=== PATIENT | female | born 1960 | race Caucasian/White ===

== ENCOUNTER 2017-01-29 17:03 | Emergency (ER) | payer OTHER ==
[2017-01-29 17:19] VITALS: BP 116/76
[2017-01-29] MEDS ORDERED: KETOROLAC 60 MG/2 ML VIAL IM STA (18:57)
[2017-01-29] MEDS ORDERED: DEXAMETHASONE 10 MG/ML VIAL PO STA (18:57)
[2017-01-29] MEDS ORDERED: HYDROmorphone 1 MG/ML SYRINGE IM STA (18:57)
--- NOTE | 2017-01-29 18:57 | ED Physician Documentation ---
PD HPI BACK PAIN - Stated complaint Stated Complaint: BACK PX - Chief complaint Chief Complaint: Back Pain - History obtained from History obtained from: Patient - History of Present Illness Timing - onset: Chronic Timing - duration: Months Timing - details: Gradual onset, Still present, Waxing and waning Location: Lower Quality: Pain, Spasm Recently seen: Clinic (has had low back pain ongoing with worse recently. Seen in clinic and given Rx for meds that are not working well. No new injury. No leg weakness/ numbness/ incontinence/ fever/ rash.) Review of Systems Constitutional: denies: Fever, Chills : denies: Incontinent Skin: denies: Rash, Lesions Neurologic: denies: Focal weakness, Numbness PD PAST MEDICAL HISTORY - Past Medical History Cardiovascular: Deep vein thrombosis Respiratory: Asthma, Shortness of breath Endocrine/Autoimmune: None GI: GERD, GI bleed, Ulcers, Chronic diarrhea, Ulcerative colitis : None HEENT: Chronic vision loss, Other Psych: Depression, Anxiety, Panic attacks, Post traumatic stress disorder Musculoskeletal: Osteoarthritis, Fibromyalgia Derm: None - Past Surgical History Past Surgical History: Yes General: Cholecystectomy, Colonoscopy Ortho: Spine surgery /LIFE COACH: section, Hysterectomy, Other - Present Medications Home Medications: Ambulatory Orders Medication Instructions Recorded Confirmed Gabapentin [Neurontin] 3 - 4 tab PO DAILY 06/08/14 10/13/16 Citalopram Hydrobromide [Celexa] 40 mg PO DAILY 08/01/14 10/13/16 Alprazolam [Xanax] 0.25 mg PO DAILY PRN 10/07/16 10/13/16 oxyCODONE [Roxicodone] 5 mg PO PRN PRN 10/07/16 10/13/16 traMADol [Ultram] 50 mg PO DAILY PRN 10/07/16 10/13/16 Dexamethasone [Decadron] 4 mg PO DAILY #5 tablet 01/29/17 - Allergies Allergies/Adverse Reactions: Allergies Allergy/AdvReac Type Severity Reaction Status Date / Time erythromycin base Allergy Respiratory Verified 01/29/17 17:19 hydrocodone bitartrate * Allergy Itching Verified 01/29/17 17:19 [From Vicodin] Penicillins Allergy Hives Verified 01/29/17 17:19 bupropion HCl * AdvReac Hives Verified 01/29/17 17:19 [From Wellbutrin] duloxetine HCl * AdvReac Hives Verified 01/29/17 17:19 [From Cymbalta] - Social History Does the pt smoke?: No Smoking Status: Never smoker Does the pt drink ETOH?: No Does the pt have substance abuse?: No - Immunizations Immunizations are current?: Yes - POLST Patient has POLST: No PD ED PE NORMAL - Vitals Vital signs reviewed: Yes - General General: Alert and oriented X 3, Well developed/nourished - Abdomen Abdomen: Soft, Non tender - Back Back: No CVA TTP, No spinal TTP, Other (tender lower back muscles without rash/ redness/ deformity. No vetebral tenderness to percussion. ) - Derm Derm: Normal color, Warm and dry, No rash - Extremities Extremities: No tenderness to palpate, Normal ROM s pain - Neuro Neuro: No motor deficit, No sensory deficit, Other (2+ reflexes at knees. ) Results - Vitals Vitals: Oxygen O2 Source Room air PD MEDICAL DECISION MAKING - ED course Complexity details: considered differential (ongoing back pain without new trauma nor red flags. ), d/w patient Departure - Departure Disposition: 01 Home, Self Care Clinical Impression: Back pain Qualifiers: Back pain location: low back pain Chronicity: acute Back pain laterality: left Sciatica presence: with sciatica Sciatica laterality: sciatica of left side Qualified Code(s): M54.42 - Lumbago with sciatica, left side Condition: Stable Record reviewed to determine appropriate education?: Yes Instructions: ED Sciatica Follow-Up: Gloria Howard PA-C [Primary Care Provider] - Prescriptions: Dexamethasone [Decadron] 4 mg PO DAILY #5 tablet Comments: Continue current medications. Add Decadron steroid daily for 5 days. Recheck with PMD if not improving over the next few days. Discharge Date/Time: 01/29/17 20:03
[2017-01-29] MEDS ORDERED: HYDROmorphone 1 MG/ML SYRINGE ONE (19:03)
[2017-01-29] MEDS ORDERED: DEXAMETHASONE 10 MG/ML VIAL ONE (19:03)
[2017-01-29] MEDS ORDERED: KETOROLAC 60 MG/2 ML VIAL ONE (19:03)
[2017-01-29] MEDS ORDERED: CHERRY SYRUP 10 ML UDC PO ONE (19:03)
== END 2017-01-29 20:03 | disposition home or self-care (01) ==
LOC: ED 17:03
DX: M54.42 Lumbago with sciatica, left side (principal); J45.909 Unspecified asthma, uncomplicated; K21.9 Gastro-esophageal reflux disease without esophagitis; M79.7 Fibromyalgia; M19.90 Unspecified osteoarthritis, unspecified site; Z87.11 Personal history of peptic ulcer disease; Z86.718 Personal history of other venous thrombosis and embolism
CPT/HCPCS: 96372; 99283; A9270; J1170

== ENCOUNTER 2017-02-15 15:38 | Outpatient (CLI) | payer OTHER ==
--- NOTE | 2017-02-16 08:47 | XRAY Report ---
THREE-VIEW RIGHT ANKLE: 02/15/2017 CLINICAL INDICATION: Pain. FINDINGS: AP, lateral, oblique views of the right ankle are compared to previous films of 04/04/2015 . Soft tissue swelling is again noted. There is now a focal lucency in the distal fibula, with surroun ding sclerosis. This may be postoperative in etiology, or may represent a small osteoid osteoma. Th ere is no evidence of acute fracture. No effusion is seen. IMPRESSION: SMALL LUCENCY IN THE DISTAL FIBULA, WITH SURROUNDING SCLEROSIS. THIS MAY BE POSTOPERATI VE IN ETIOLOGY OR REPRESENT A SMALL OSTEOID OSTEOMA. IF THERE IS NO SURGICAL EXPLANATION FOR THIS, R EPEAT MRI WOULD BE RECOMMENDED. JOB #: [id number] EXT JOB #:[id number]
== END 2017-02-15 15:39 | disposition home or self-care (01) ==
LOC: DI 15:38
PROVIDERS: ATTEND Orthopaedic Surgery
DX: M25.571 Pain in right ankle and joints of right foot (principal)

== ENCOUNTER 2017-04-30 16:32 | Outpatient (CLI) | payer OTHER ==
--- NOTE | 2017-04-30 22:08 | MRI Report ---
EXAM: RIGHT ANKLE/HINDFOOT MRI WITHOUT CONTRAST EXAM DATE: 04/30/2017 05:58 PM. CLINICAL HISTORY: Nontraumatic rupture of peroneal tendon, right. COMPARISON: Radiographs 02/15/2017. TECHNIQUE: Multiplanar, multisequence T1-weighted and fluid-sensitive sequences of the ankle/hindfoot without contrast. Other: None. FINDINGS: Bones and articular surfaces: No significant ankle joint effusion. No osteochondral lesions. No signi ficant articular cartilage defects. Tunnel within the distal fibula relating to lateral ankle reconst ruction. No significant associated marrow edema. No fracture identified. Musculotendinous structures: There is thickening of the peroneal tendons where the proximal portion o f the peroneus brevis is sutured to the peroneus longus above the lateral malleolus. The peroneus cece esmer tendon demonstrates a small amount of adjacent fluid. Otherwise intact. The peroneus brevis tendo n is seen intact from the anterior margin of the fibular tunnel to the fifth metatarsal insertion. Sm all volume of fluid associated with the tibialis posterior. Remaining anterior and posterior ankle te ndons appear intact. Achilles tendon and plantar fascia appear intact. Ligaments: The anterior and posterior talofibular and deltoid ligaments appear intact. The calcaneofi bular ligament appears attenuated. Visualized portion appears intact. Abnormal signal within the tars al sinus. Miscellaneous: Small amount of soft tissue thickening and edema adjacent to the peroneus brevis tendo n distal to the fibular tunnel in the area of pain. IMPRESSION: 1. Minimal peroneal tenosynovitis above the lateral malleolus. 2. Small amount of soft tissue thickening and edema adjacent to the peroneus brevis tendon distal to the fibular tunnel may represent some scar tissue. [facility] MUSCULOSKELET[facility]IOLOGY SECTION Referring Provider Line: [phone] SITE ID: [id number]
== END 2017-04-30 16:33 | disposition home or self-care (01) ==
LOC: DI 16:32
PROVIDERS: ATTEND Physician Assistant Medical
DX: M65.871 Other synovitis and tenosynovitis, right ankle and foot (principal)

== ENCOUNTER 2017-12-08 14:38 | Outpatient (CLI) | payer BC ==
[2017-12-08 17:37] LABS: BASOPHILS # (AUTO) 0.1 10^3/uL (0.0-0.1); BASOPHILS % (AUTO) 0.8 %; EOSINOPHILS # (AUTO) 0.3 10^3/uL (0.0-0.7); EOSINOPHILS % (AUTO) 3.8 %; HGB - HEMOGLOBIN 13.5 g/dL (12.0-16.0); LYMPHOCYTES # (AUTO) 2.9 10^3/uL (1.5-3.5); LYMPHOCYTES % (AUTO) 39.6 %; MEAN CORPUSCULAR HEMOGLOBIN 29.5 pg (27.0-31.0); MEAN CORPUSCULAR HGB CONC 33.4 g/dL (32.0-36.0); MEAN CORPUSCULAR VOLUME 88.2 fL (81.0-99.0); MEAN PLATELET VOLUME 8.2 fL (7.9-10.8); MONOCYTES # (AUTO) 0.6 10^3/uL (0.0-1.0); MONOCYTES % (AUTO) 7.8 %; NEUTROPHILS # (AUTO) 3.5 10^3/uL (1.5-6.6); PLT - PLATELET COUNT 340 10^3/uL (130-450); RED BLOOD COUNT 4.57 10^6/uL (4.20-5.40); RED CELL DISTRIBUTION WIDTH 13.5 % (12.0-15.0); WHITE BLOOD COUNT 7.3 x10^3/uL (4.8-10.8)
[2017-12-08 18:00] LABS: ALBUMIN 4.2 g/dL (3.2-5.5); ALBUMIN/GLOBULIN RATIO 1.2 (1.0-2.2); CALCIUM 9.3 mg/dL (8.5-10.3); MAGNESIUM 2.1 mg/dL (1.7-2.8); TOTAL PROTEIN 7.7 g/dL (6.7-8.2)
== END 2017-12-08 14:39 | disposition home or self-care (01) ==
LOC: LAB.F 14:38
PROVIDERS: ATTEND Physician Assistant Medical
DX: R25.2 Cramp and spasm (principal); Z51.81 Encounter for therapeutic drug level monitoring; Z79.899 Other long term (current) drug therapy
CPT/HCPCS: 36415; 80053; 80061; 83721; 83735; 84443; 85025

== ENCOUNTER 2017-12-15 08:08 | Outpatient (CLI) | payer BC ==
[2017-12-15 12:15] LABS: CHOL/HDL RATIO 4.4 (<4.4); CHOLESTEROL 239 mg/dL; HDL CHOLESTEROL 54 mg/dL; LDL CHOLESTEROL,CALCULATED 161 mg/dL; VLDL CHOLESTEROL 24 mg/dL
== END 2017-12-15 08:09 | disposition home or self-care (01) ==
LOC: LAB.F 08:08
PROVIDERS: ATTEND Physician Assistant Medical
DX: R25.2 Cramp and spasm (principal); Z51.81 Encounter for therapeutic drug level monitoring; Z79.899 Other long term (current) drug therapy
CPT/HCPCS: 36415; 80061; 83721

== ENCOUNTER 2018-11-28 13:27 | Outpatient (CLI) | payer OTHER, BC ==
--- NOTE | 2018-11-29 10:35 | MRI Report ---
Reason: CHRONIC PAIN SUBJECTIVE INSTABILITY SINCE SURGICAL Procedure Date: 11/28/2018 Accession Number: [id number] / [id number] Procedure: MRI - Ankle RT W/O CPT Code: FULL RESULT: EXAM: RIGHT ANKLE/HINDFOOT MRI WITHOUT CONTRAST EXAM DATE: 11/28/2018 02:45 PM. CLINICAL HISTORY: Chronic pain subjective instability since surgical. COMPARISON: ANKLE RT W/O 04/30/2017 4:45 PM. TECHNIQUE: Multiplanar, multisequence T1-weighted and fluid-sensitive sequences of the ankle/hindfoot without contrast. Other: None. FINDINGS: Bones: Again seen is lateral ankle repair with peroneus brevis interposition through fibular tunnel. Repair appears intact. Alignment stable. Bony structures demonstrate normal morphology and signal with no marrow edema. Articular Cartilage: Probable mild anterior ankle degenerative joint disease with mild cartilage thinning and small anterior tibial osteophyte, stable. Mild calcaneocuboid cartilage thinning. Ligaments: The anterior and posterior tibiofibular, anterior and posterior talofibular, and calcaneofibular ligaments are intact. The deep and superficial deltoid and spring ligaments are intact. Anterior Tendons: The tibialis anterior, extensor hallucis longus, and extensor digitorum longus tendons are unremarkable. Medial Tendons: The tibialis posterior, flexor digitorum longus, and flexor hallucis longus tendons are unremarkable. Lateral Tendons: Peroneus brevis interposition through the fibular tunnel, stable. Peroneus longus intact. Achilles Tendon: The Achilles tendon is unremarkable. Musculature: No edema or fatty atrophy. Other: No effusions. The contents of the sinus tarsi and tarsal tunnel are unremarkable. No plantar fasciitis. Mild soft tissue edema medial and lateral. IMPRESSION: 1. Stable lateral ankle repair with peroneus brevis interposition through fibular tunnel, stable. 2. Minimal degenerative changes in the ankle and calcaneocuboid joints, stable. 3. Otherwise, no significant change since prior. [facility]
== END 2018-11-28 13:28 | disposition home or self-care (01) ==
LOC: DI 13:27
PROVIDERS: ATTEND Physical Medicine & Rehabilitation
DX: M19.071 Primary osteoarthritis, right ankle and foot (principal)

== ENCOUNTER 2019-01-05 14:36 | Outpatient (CLI) | payer BC ==
--- NOTE | 2019-01-05 17:06 | Ultrasound Report ---
Reason: RT RIB PAIN, PALP CYST Procedure Date: 01/05/2019 Accession Number: [id number] / [id number] Procedure: US - Chest CPT Code: FULL RESULT: EXAM: LIMITED CHEST WALL ULTRASOUND. EXAM DATE: 01/05/2019 03:11 PM. CLINICAL HISTORY: Right rib pain, palpable cyst. COMPARISON: None. TECHNIQUE: Grayscale and limited color Doppler images of the right lateral chest wall were obtained. FINDINGS: The palpable region along the right lateral chest wall as indicated by the patient is interrogated. A normal appearing lymph node measuring up to 0.7 cm with no abnormal vascularity by color Doppler is identified. Otherwise, normal tissues with no fluid collection or mass. IMPRESSION: Morphologically normal appearing lymph node as described. [facility]
== END 2019-01-05 14:37 | disposition home or self-care (01) ==
LOC: DI 14:36
PROVIDERS: ATTEND Nurse Practitioner
DX: R07.81 Pleurodynia (principal)
CPT/HCPCS: 76604

== ENCOUNTER 2019-01-13 14:07 | Outpatient (CLI) | payer BC ==
--- NOTE | 2019-01-16 10:47 | Mammography Report ---
Reason: MAMMOGRAPHIC SCREENING FOR BREAST CANCER Procedure Date: 01/13/2019 Accession Number: [id number] / [id number] Procedure: WADE - Screening Mammo w/Chucky CPT Code: FULL RESULT: EXAM: Screening Mammo w/Chucky DATE: 01/13/2019 3:27 PM CLINICAL HISTORY: Routine screening TECHNIQUE: (B) - Bilateral CC and MLO views were obtained. COMPARISON: None PARENCHYMAL PATTERN: (A) - The breasts demonstrate scattered fibroglandular densities bilaterally. FINDINGS: Right breast: There are no suspicious masses, calcifications, or areas of distortion. Left breast: Area of asymmetric increased density left upper outer quadrant approximately 4 to 5 cm from the nipple. No suspicious microcalcifications or architectural distortion. IMPRESSION: Incomplete examination. BI-RADS category 0. Needs additional evaluation left breast by spot compression and true lateral views and possible ultrasound. Negative right breast. RECOMMENDATION: ([facility]) - Additional views using both Mammography and Ultrasound recommended of the Left breast. Negative right breast. BI-RADS CATEGORY: (0) - Incomplete Examination - need additional evaluation. STANDARD QUALIFYING STATEMENTS: 1. This examination was not reviewed with the aid of Computer-Aided Detection (CAD). 2. A negative or benign imaging report should not preclude biopsy if clinically suspicious findings are present. 3. Dense breasts may obscure an underlying neoplasm. 4. This examination was reviewed with the aid of 3D breast imaging (tomosynthesis).
== END 2019-01-13 14:08 | disposition home or self-care (01) ==
LOC: DI 14:07
PROVIDERS: ATTEND Nurse Practitioner
DX: Z12.31 Encounter for screening mammogram for malignant neoplasm of breast (principal)
CPT/HCPCS: 77063; 77067

== ENCOUNTER 2019-02-01 12:24 | Outpatient (CLI) | payer BC ==
--- NOTE | 2019-02-01 14:27 | Mammography Report ---
Reason: ABNORMAL MAMMOGRAM Procedure Date: 02/01/2019 Accession Number: [id number] / [id number] Procedure: WADE - Diag Special Views Dig LT CPT Code: FULL RESULT: EXAM: Diag Special Views Dig LT DATE: 02/01/2019 1:19 PM CLINICAL HISTORY: Diagnostic examination. The patient is recalled from screening for a left upper outer quadrant focal asymmetry. TECHNIQUE: (L) - Left left spot CC, spot MLO and ML images are obtained. Focused left breast ultrasound is performed. COMPARISON: 01/13/2019. PARENCHYMAL PATTERN: (A) - The breast(s) demonstrate(s) scattered fibroglandular densities. FINDINGS: The previously seen focal asymmetry in the left breast persists and spot imaging as a isodense partially obscured nodule approximately 5.5 cm from the nipple at the 2:00 position. Focused left breast ultrasound is performed and demonstrates a typically benign appearing lymph node with preserved architecture which measures 0.3 x 0.6 x 1.0 cm. No suspicious findings, specifically no architectural distortion, suspicious calcifications or aggressive mass are identified. IMPRESSION: Benign findings. BI-RADS category 2. RECOMMENDATION: (ANNUAL) - Recommend routine annual screening mammography. BI-RADS CATEGORY: (2) - Benign Findings. STANDARD QUALIFYING STATEMENTS: 1. This examination was not reviewed with the aid of Computer-Aided Detection (CAD). 2. A negative or benign imaging report should not preclude biopsy if clinically suspicious findings are present. 3. Dense breasts may obscure an underlying neoplasm. 4. This examination was reviewed with the aid of 3D breast imaging (tomosynthesis).
== END 2019-02-01 12:25 | disposition home or self-care (01) ==
LOC: DI 12:24
PROVIDERS: ATTEND Physician Assistant Medical
DX: R92.8 Other abnormal and inconclusive findings on diagnostic imaging of breast (principal)
CPT/HCPCS: 76642

== ENCOUNTER 2019-02-01 13:27 | Outpatient (CLI) | payer BC ==
--- NOTE | 2019-02-02 09:14 | Ultrasound Report ---
Reason: LYMPHADENOPATHY RT AXILLA Procedure Date: 02/01/2019 Accession Number: [id number] / [id number] Procedure: US - Axilla CPT Code: FULL RESULT: EXAM: SOFT TISSUE ULTRASOUND LIMITED, RIGHT AXILLARY REGION EXAM DATE: 02/01/2019 02:16 PM. CLINICAL HISTORY: Lymphadenopathy, right axilla. COMPARISON: None. TECHNIQUE: Real-time scanning was performed with static images obtained. FINDINGS: The right axilla with focus on an area pointed out is palpable by the patient is interrogated. This demonstrates a 1.5 x 0.6 x 1.1 cm lymph node with preservation of fatty hilum and normal hilar blood flow by color Doppler. No abnormal features and no abnormal mass or collection are seen in the region. IMPRESSION: Morphologically preserved lymph node. [facility]
== END 2019-02-01 13:28 | disposition home or self-care (01) ==
LOC: DI 13:27
PROVIDERS: ATTEND Family Medicine
DX: R59.0 Localized enlarged lymph nodes (principal); R92.8 Other abnormal and inconclusive findings on diagnostic imaging of breast
CPT/HCPCS: 76642; 76882

== ENCOUNTER 2019-11-02 08:00 | Outpatient (CLI) | payer BC, OTHER ==
[2019-11-02 12:07] LABS: BASOPHILS # (AUTO) 0.1 10^3/uL (0.0-0.1); EOSINOPHILS # (AUTO) 0.4 10^3/uL (0.0-0.7); HGB - HEMOGLOBIN 12.5 g/dL (12.0-16.0); LYMPHOCYTES # (AUTO) 2.6 10^3/uL (1.5-3.5); LYMPHOCYTES % (AUTO) 42.6 %; MEAN CORPUSCULAR HEMOGLOBIN 29.5 pg (27.0-31.0); MEAN CORPUSCULAR HGB CONC 32.2 g/dL (32.0-36.0); MEAN CORPUSCULAR VOLUME 91.5 fL (81.0-99.0); MEAN PLATELET VOLUME 9.6 fL (7.9-10.8); MONOCYTES # (AUTO) 0.5 10^3/uL (0.0-1.0); MONOCYTES % (AUTO) 8.4 %; NEUTROPHILS # (AUTO) 2.6 10^3/uL (1.5-6.6); NEUTROPHILS % (AUTO) 41.8 %; PLT - PLATELET COUNT 303 10^3/uL (130-450); RED BLOOD COUNT 4.24 10^6/uL (4.20-5.40); RED CELL DISTRIBUTION WIDTH 13.2 % (12.0-15.0); WHITE BLOOD COUNT 6.2 x10^3/uL (4.8-10.8)
[2019-11-02 12:19] LABS: ALBUMIN 3.9 g/dL (3.2-5.5); ALBUMIN/GLOBULIN RATIO 1.3 (1.0-2.2); BILIRUBIN,TOTAL 1.3 mg/dL (0.2-1.0); CALCIUM 8.4 mg/dL (8.5-10.3)
== END 2019-11-02 23:59 | disposition home or self-care (01) ==
LOC: LAB.WCP 08:00
PROVIDERS: ATTEND Physician Assistant Medical
DX: Z51.81 Encounter for therapeutic drug level monitoring (principal); Z79.899 Other long term (current) drug therapy
CPT/HCPCS: 36415; 80053; 85025

== ENCOUNTER 2019-11-09 08:00 | Outpatient (CLI) | payer OTHER ==
[2019-11-09 17:58] LABS: ALBUMIN 4.1 g/dL (3.2-5.5); ALBUMIN/GLOBULIN RATIO 1.2 (1.0-2.2); BILIRUBIN,TOTAL 0.5 mg/dL (0.2-1.0); CALCIUM 8.9 mg/dL (8.5-10.3); CREATININE 0.9 mg/dL (0.4-1.0); MAGNESIUM 1.9 mg/dL (1.7-2.8); TOTAL PROTEIN 7.5 g/dL (6.7-8.2)
== END 2019-11-09 23:59 | disposition home or self-care (01) ==
LOC: LAB.WCP 08:00
PROVIDERS: ATTEND Physician Assistant Medical
DX: R89.9 Unspecified abnormal finding in specimens from other organs, systems and tissues (principal)
CPT/HCPCS: 36415; 80053; 83735; 84443

== ENCOUNTER 2021-02-17 18:08 | Emergency (ER) | payer OTHER ==
--- NOTE | 2021-02-17 19:13 | XRAY Report ---
PROCEDURE: Abdomen 1 View X-Ray INDICATIONS: swallowed FB TECHNIQUE: 1 view of the abdomen were acquired. COMPARISON: None FINDINGS: Surgical changes and devices: None. Bowel: No pneumoperitoneum. The bowel gas pattern is normal. Soft tissues: No masses; visualized solid organ contours appear normal in size. No suspicious abdom inal calcifications. Bones: No suspicious bony abnormalities. IMPRESSION: No acute plain film abnormality of the abdomen. Reviewed by: Bronson Tracy on 02/17/2021 7:11 PM PDT Approved by: Bronson Tracy on 02/17/2021 7:11 PM PDT Station ID: [id number]
--- NOTE | 2021-02-17 19:22 | XRAY Report ---
PROCEDURE: Chest 1 View X-Ray INDICATIONS: swallowed FB TECHNIQUE: One view of the chest was acquired. COMPARISON: None FINDINGS: Surgical changes and devices: None. Lungs and pleura: No pleural effusions or pneumothorax. Lungs are clear. Mediastinum: Mediastinal contours appear normal. Heart size is normal. Bones and chest wall: No suspicious bony lesions. Overlying soft tissues appear unremarkable. IMPRESSION: No acute cardiopulmonary abnormality. Reviewed by: Bronson Tracy on 02/17/2021 7:21 PM PDT Approved by: Bronson Tracy on 02/17/2021 7:21 PM PDT Station ID: [id number]
--- NOTE | 2021-02-17 20:47 | ED Physician Documentation ---
History of Present Illness - Stated complaint Stated Complaint: FB - Chief complaint Chief Complaint: General - History obtained from History obtained from: Patient - History of Present Illness Timing: How many days ago (2) Pain level max: 3 Pain level now: 2 - Additonal information Additional information: Patient is a 60-year-old female who was concerned that she may have swallowed a tooth. She states that she has tardive Dyskinesia and that her teeth "fall out and sometimes she swallows them". She states that she swallowed a tooth a few days ago and she had slight abdominal pain earlier today. Concerned that it may have become stuck. No vomiting. Nothing makes it better or worse. Currently asymptomatic. Review of Systems Constitutional: denies: Fever, Chills GI: denies: Vomiting, Diarrhea Skin: denies: Rash PD PAST MEDICAL HISTORY - Past Medical History Past Medical History: Yes Cardiovascular: Deep vein thrombosis Respiratory: Asthma, Shortness of breath Endocrine/Autoimmune: None GI: GERD, GI bleed, Ulcers, Chronic diarrhea, Ulcerative colitis : None HEENT: Chronic vision loss, Other Psych: Depression, Anxiety, Panic attacks, Post traumatic stress disorder Musculoskeletal: Osteoarthritis, Fibromyalgia Derm: None - Past Surgical History Past Surgical History: Yes General: Cholecystectomy, Colonoscopy Ortho: Spine surgery /LINE WORKER: section, Hysterectomy, Other - Present Medications Home Medications: Ambulatory Orders Medication Instructions Recorded Confirmed Gabapentin [Neurontin] 3 - 4 tab PO DAILY 06/08/14 02/17/21 Citalopram Hydrobromide [Celexa] 40 mg PO DAILY 08/01/14 02/17/21 Alprazolam [Xanax] 0.25 mg PO DAILY PRN 10/07/16 02/17/21 oxyCODONE [Roxicodone] 5 mg PO PRN PRN 10/07/16 02/17/21 traMADol [Ultram] 50 mg PO DAILY PRN 10/07/16 02/17/21 dexAMETHasone [Decadron] 4 mg PO DAILY #5 tablet 01/29/17 02/17/21 Nortriptyline [Pamelor] 25 mg PO DAILY 02/17/21 02/17/21 Prazosin [Minipress] 10 mg PO DAILY 02/17/21 02/17/21 - Allergies Allergies/Adverse Reactions: Allergies Allergy/AdvReac Type Severity Reaction Status Date / Time erythromycin base Allergy Respiratory Verified 02/17/21 18:21 hydrocodone bitartrate * Allergy Itching Verified 02/17/21 18:21 [From Vicodin] Penicillins Allergy Hives Verified 02/17/21 18:21 bupropion HCl * AdvReac Hives Verified 02/17/21 18:21 [From Wellbutrin] duloxetine HCl * AdvReac Hives Verified 02/17/21 18:21 [From Cymbalta] - Social History Does the pt smoke?: No Smoking Status: Never smoker Does the pt drink ETOH?: No Does the pt have substance abuse?: No - Immunizations Immunizations are current?: Yes - POLST Patient has POLST: No PD ED PE NORMAL - Vitals Vital signs reviewed: Yes - General General: Alert and oriented X 3, No acute distress, Well developed/nourished - HEENT HEENT: PERRL, Moist mucous membranes - Neck Neck: Supple, no meningeal sign - Cardiac Cardiac: RRR - Respiratory Respiratory: No respiratory distress, Clear bilaterally - Abdomen Abdomen: Soft, Non tender, Non distended - Derm Derm: Warm and dry - Neuro Neuro: Alert and oriented X 3 - Psych Psych: Normal mood, Normal affect Results - Vitals Vitals: Vital Signs - 24 hr 02/17/21 02/17/21 02/17/21 18:21 20:24 21:05 Temperature 36.8 C 36.8 C 36.7 C Heart Rate 115 H 90 81 Respiratory 16 16 17 Rate Blood Pressure 134/79 H 135/71 H 131/71 H O2 Saturation 98 97 98 Oxygen O2 Source Room air - Rads (name of study) cxr Radiology: Final report received, EMP read contemporaneously, See rad report (No acute abnormality) abd xray Radiology: Final report received, EMP read contemporaneously, See rad report (No acute abnormality) PD MEDICAL DECISION MAKING - ED course Complexity details: reviewed results, considered differential, d/w patient ED course: No acute findings on x-ray. We will have the patient follow-up with her doctor for further care. Patient asymptomatic here. Patient counseled regarding signs and symptoms for which I believe and urgent re-evaluation would be necessary. Patient with good understanding of and agreement to plan and is comfortable going home at this time This document was made in part using voice recognition software. While efforts are made to proofread this document, sound alike and grammatical errors may occur. Departure - Departure Disposition: 01 Home, Self Care Clinical Impression: Foreign body ingestion Qualifiers: Encounter type: initial encounter Qualified Code(s): T18.9XXA - Foreign body of alimentary tract, part unspecified, initial encounter Condition: Good Instructions: ED Foreign Body Swallowed Adult Follow-Up: your,doctor as needed [Other] Comments: Follow-up with your doctor as needed for further care. Return if you worsen. Your x-rays do not show any acute abnormality today. Discharge Date/Time: 02/17/21 21:05
[2021-02-17 21:06] VITALS: BP 131/71
== END 2021-02-17 21:05 | disposition home or self-care (01) ==
LOC: ED 18:08
DX: T18.9XXA Foreign body of alimentary tract, part unspecified, initial encounter (principal); X58.XXXA Exposure to other specified factors, initial encounter; R10.9 Unspecified abdominal pain
CPT/HCPCS: 99282; 99283

== ENCOUNTER 2022-02-12 10:29 | Outpatient (CLI) | payer OTHER ==
[2022-02-12 12:21] LABS: BASOPHILS # (AUTO) 0.1 10^3/uL (0.0-0.1); BASOPHILS % (AUTO) 0.7 %; EOSINOPHILS # (AUTO) 0.3 10^3/uL (0.0-0.7); EOSINOPHILS % (AUTO) 3.2 %; HCT - HEMATOCRIT 41.8 % (37.0-47.0); LYMPHOCYTES # (AUTO) 3.3 10^3/uL (1.5-3.5); LYMPHOCYTES % (AUTO) 38.1 %; MEAN CORPUSCULAR HEMOGLOBIN 30.2 pg (27.0-31.0); MEAN CORPUSCULAR HGB CONC 33.5 g/dL (32.0-36.0); MEAN CORPUSCULAR VOLUME 90.1 fL (81.0-99.0); MEAN PLATELET VOLUME 9.9 fL (7.9-10.8); MONOCYTES # (AUTO) 0.6 10^3/uL (0.0-1.0); MONOCYTES % (AUTO) 6.9 %; NEUTROPHILS # (AUTO) 4.4 10^3/uL (1.5-6.6); NEUTROPHILS % (AUTO) 50.9 %; PLT - PLATELET COUNT 337 10^3/uL (130-450); RED BLOOD COUNT 4.64 10^6/uL (4.20-5.40); RED CELL DISTRIBUTION WIDTH 12.9 % (12.0-15.0); WHITE BLOOD COUNT 8.6 x10^3/uL (4.8-10.8)
[2022-02-12 12:35] LABS: ALBUMIN 4.5 g/dL (3.2-5.5); ALBUMIN/GLOBULIN RATIO 1.3 (1.0-2.2); ALKALINE PHOSPHATASE 97 IU/L (42-121); ALT ALANINE AMINOTRANSFERASE 20 IU/L (10-60); AST ASPARTATE AMINOTRANSFERASE 18 IU/L (10-42); BUN - BLOOD UREA NITROGEN 12 mg/dL (6-20); CALCIUM 9.5 mg/dL (8.5-10.3); CARBON DIOXIDE - CO2 28 mmol/L (21-32); CHLORIDE 102 mmol/L (101-111); CHOL/HDL RATIO 3.8 (<4.4); CHOLESTEROL 245 mg/dL; GFR - MDRD 56 (>89); GLUCOSE 117 mg/dL (70-100); HDL CHOLESTEROL 65 mg/dL; LDL CHOLESTEROL,CALCULATED 156 mg/dL; LDL/HDL RATIO 2.4 (<4.4); SODIUM 138 mmol/L (135-145); TOTAL PROTEIN 7.9 g/dL (6.7-8.2); TRIGLYCERIDES 122 mg/dL; VLDL CHOLESTEROL 24 mg/dL
[2022-02-12 12:37] LABS: THYROID STIMULATING HORMONE 4.72 uIU/mL (0.34-5.60)
[2022-02-12 13:25] LABS: ESTIMATED AVERAGE GLUCOSE 103 mg/dL (70-100); HEMOGLOBIN A1c% 5.2 % (4.27-6.07)
== END 2022-02-12 10:30 | disposition home or self-care (01) ==
LOC: LAB.N 10:29
PROVIDERS: ATTEND Nurse Practitioner
DX: I10 Essential (primary) hypertension (principal); R53.83 Other fatigue; Z13.220 Encounter for screening for lipoid disorders; Z79.899 Other long term (current) drug therapy
CPT/HCPCS: 36415; 80053; 80061; 83036; 83721; 84443; 85025

== ENCOUNTER 2022-09-17 10:38 | Outpatient (CLI) | payer OTHER ==
--- NOTE | 2022-09-18 15:28 | Mammography Report ---
BILATERAL DIGITAL DIAGNOSTIC MAMMOGRAM 3D/2D: 09/17/2022 CLINICAL: Family history of breast cancer. Comparison is made to exams dated: 02/01/2019 mammogram and 01/13/2019 mammogram - [facility]. Both breasts are almost entirely fatty (category a/<25% glandular tissue). No significant masses, calcifications, or other findings are seen in either breast. There has been no significant interval change. IMPRESSION: NEGATIVE There is no mammographic evidence of malignancy. A 1 year screening mammogram is recommended. Based on the Tyrer Cuzick model (a risk assessment model) the patients lifetime risk is 4.0% and her 10 year risk is 1.7%. According to the ACR, ACS, and NCCN guidelines, an annual breast MRI exam tamara g with mammogram is recommended if the patients lifetime risk is 20% or greater. This exam was interpreted at Station ID: [id number]. NOTE: For mammograms, a report in lay terms will be sent to the patient. Approximately 15% of breast malignancies will not be visualized mammographically. In the management of a palpable breast mass, a negative mammogram must not discourage biopsy of a clinically suspicious lesion. Electronically Signed By: Reji Rosen M.D., jr/dhaval:09/17/2022 15:31:56 letter sent: No_Letter ACR BI-RADS Category 1: Negative 3341F PARENCHYMAL PATTERN: (F) - The breast(s) demonstrate(s) diffuse fatty replacement. BI-RADS CATEGORY: (1) - 1 Mammogram [id number] 1 year screening LATERALITY: (B)
== END 2022-09-17 10:39 | disposition home or self-care (01) ==
LOC: DI 10:38
PROVIDERS: ATTEND Nurse Practitioner
DX: Z80.3 Family history of malignant neoplasm of breast (principal)

== ENCOUNTER 2023-03-03 14:01 | Outpatient (CLI) | payer OTHER ==
[2023-03-03 17:55] LABS: ALBUMIN/GLOBULIN RATIO 1.3 (1.0-2.2); ALKALINE PHOSPHATASE 92 IU/L (42-121); ALT ALANINE AMINOTRANSFERASE 22 IU/L (10-60); AST ASPARTATE AMINOTRANSFERASE 23 IU/L (10-42); BILIRUBIN,TOTAL 1.3 mg/dL (0.2-1.0); BUN - BLOOD UREA NITROGEN 6 mg/dL (6-20); CALCIUM 9.3 mg/dL (8.5-10.3); CARBON DIOXIDE - CO2 27 mmol/L (21-32); CHLORIDE 106 mmol/L (101-111); CHOL/HDL RATIO 2.6 (<4.4); CHOLESTEROL 141 mg/dL; CK- CREATINE KINASE 155 IU/L (22-269); GFR - MDRD 56 (>89); GLUCOSE 98 mg/dL (70-100); HDL CHOLESTEROL 55 mg/dL; LDL CHOLESTEROL,CALCULATED 63 mg/dL; LDL/HDL RATIO 1.1 (<4.4); POTASSIUM 4.1 mmol/L (3.5-5.0); SODIUM 138 mmol/L (135-145); TRIGLYCERIDES 115 mg/dL; VLDL CHOLESTEROL 23 mg/dL
[2023-03-03 17:57] LABS: BASOPHILS # (AUTO) 0.1 10^3/uL (0.0-0.1); BASOPHILS % (AUTO) 0.8 %; EOSINOPHILS # (AUTO) 0.3 10^3/uL (0.0-0.7); EOSINOPHILS % (AUTO) 3.6 %; HCT - HEMATOCRIT 41.8 % (37.0-47.0); HGB - HEMOGLOBIN 13.3 g/dL (12.0-16.0); LYMPHOCYTES # (AUTO) 2.3 10^3/uL (1.5-3.5); LYMPHOCYTES % (AUTO) 28.5 %; MEAN CORPUSCULAR HEMOGLOBIN 30.3 pg (27.0-31.0); MEAN CORPUSCULAR HGB CONC 31.8 g/dL (32.0-36.0); MEAN CORPUSCULAR VOLUME 95.2 fL (81.0-99.0); MEAN PLATELET VOLUME 11.1 fL (7.9-10.8); MONOCYTES # (AUTO) 0.5 10^3/uL (0.0-1.0); MONOCYTES % (AUTO) 6.7 %; NEUTROPHILS # (AUTO) 4.8 10^3/uL (1.5-6.6); NEUTROPHILS % (AUTO) 60.3 %; PLT - PLATELET COUNT 301 10^3/uL (130-450); RED BLOOD COUNT 4.39 10^6/uL (4.20-5.40); RED CELL DISTRIBUTION WIDTH 13.1 % (12.0-15.0)
== END 2023-03-03 14:02 | disposition home or self-care (01) ==
LOC: LAB.N 14:01
PROVIDERS: ATTEND Nurse Practitioner
DX: E78.5 Hyperlipidemia, unspecified (principal); F31.81 Bipolar II disorder
CPT/HCPCS: 36415; 80053; 80061; 80178; 82550; 83721; 85025

== ENCOUNTER 2024-03-31 10:49 | Outpatient (CLI) | payer OTHER ==
[2024-03-31 18:07] LABS: BASOPHILS # (AUTO) 0.1 10^3/uL (0.0-0.1); BASOPHILS % (AUTO) 0.8 %; EOSINOPHILS # (AUTO) 0.2 10^3/uL (0.0-0.7); EOSINOPHILS % (AUTO) 2.2 %; HCT - HEMATOCRIT 40.6 % (37.0-47.0); LYMPHOCYTES # (AUTO) 2.3 10^3/uL (1.5-3.5); LYMPHOCYTES % (AUTO) 28.6 %; MEAN CORPUSCULAR HEMOGLOBIN 30.2 pg (27.0-31.0); MEAN CORPUSCULAR VOLUME 94.4 fL (81.0-99.0); MEAN PLATELET VOLUME 10.2 fL (7.9-10.8); MONOCYTES # (AUTO) 0.5 10^3/uL (0.0-1.0); MONOCYTES % (AUTO) 6.9 %; NEUTROPHILS # (AUTO) 4.8 10^3/uL (1.5-6.6); NEUTROPHILS % (AUTO) 61.2 %; PLT - PLATELET COUNT 332 10^3/uL (130-450); RED CELL DISTRIBUTION WIDTH 12.9 % (12.0-15.0); WHITE BLOOD COUNT 7.9 x10^3/uL (4.8-10.8)
[2024-03-31 18:42] LABS: LITHIUM 0.36 mmol/L
[2024-03-31 19:01] LABS: ALBUMIN 4.3 g/dL (3.2-5.5); ALBUMIN/GLOBULIN RATIO 1.4 (1.0-2.2); ALKALINE PHOSPHATASE 75 IU/L (42-121); ALT ALANINE AMINOTRANSFERASE 10 IU/L (10-60); AST ASPARTATE AMINOTRANSFERASE 12 IU/L (10-42); BILIRUBIN,TOTAL 0.9 mg/dL (0.2-1.0); BUN - BLOOD UREA NITROGEN 10 mg/dL (6-20); CALCIUM 9.6 mg/dL (8.5-10.3); CARBON DIOXIDE - CO2 28 mmol/L (21-32); CHLORIDE 105 mmol/L (101-111); CHOL/HDL RATIO 2.4 (<4.4); CHOLESTEROL 142 mg/dL; GFR - MDRD 56 (>89); GLUCOSE 88 mg/dL (74-104); HDL CHOLESTEROL 60 mg/dL; LDL CHOLESTEROL,CALCULATED 56 mg/dL; LDL/HDL RATIO 0.9 (<4.4); POTASSIUM 4.1 mmol/L (3.5-4.5); SODIUM 139 mmol/L (135-145); TOTAL PROTEIN 7.3 g/dL (6.4-8.9); TRIGLYCERIDES 128 mg/dL; VLDL CHOLESTEROL 26 mg/dL
[2024-03-31 19:02] LABS: THYROID STIMULATING HORMONE 2.61 uIU/mL (0.34-5.60)
[2024-03-31 20:48] LABS: ESTIMATED AVERAGE GLUCOSE 94 mg/dL (70-100); HEMOGLOBIN A1c% 4.9 % (4.27-6.07)
== END 2024-03-31 10:50 | disposition home or self-care (01) ==
LOC: LAB.N 10:49
PROVIDERS: ATTEND Nurse Practitioner
DX: I10 Essential (primary) hypertension (principal); E78.5 Hyperlipidemia, unspecified; F31.81 Bipolar II disorder; E66.9 Obesity, unspecified
CPT/HCPCS: 36415; 80053; 80061; 80178; 82607; 83036; 83721; 84443; 85025

== ENCOUNTER 2024-03-31 10:53 | Outpatient (CLI) | payer OTHER | END 2024-03-31 10:54 | disposition home or self-care (01) | LOC: DI.N 10:53 | PROVIDERS: ATTEND Orthopaedic Surgery | DX: Z53.9 Procedure and treatment not carried out, unspecified reason (principal) ==